=== PATIENT | female | born 1990 | race Two or more races ===

== ENCOUNTER → 2025-08-04 09:01 | Outpatient (REF) | payer OTHER, SELFPAY | LOC: PNTC 09:01 | PROVIDERS: ATTENDING PHYSICIAN Obstetrics & Gynecology | DX: O70.21 Third degree perineal laceration during delivery, IIIa (principal) | CPT/HCPCS: 76816 ==

== ENCOUNTER 2025-08-13 07:53 | Inpatient (IN) | payer OTHER, SELFPAY ==
[2025-08-13 08:08] VITALS: BP 113/82; BMI 28.0
[2025-08-13] MEDS: CYTOTEC 25 MICROGRAM PO ×2 (09:28→13:43)
[2025-08-13 09:52] LABS: Hematocrit 35.2 % (37.0-47.0); Hemoglobin 11.9 g/dL (12.0-16.0); Mean Corp Hgb Conc. 33.8 g/dL (33.0-37.0); Mean Corpuscular Volume 92.1 fL (81.0-99.0); Nucleated Red Blood Cells % 0 %; Platelet Count 291 10^3/uL (130-400); Red Cell Dist. Width 13.2 % (11.5-14.5)
[2025-08-13] MEDS: LR 1000 IV ×2 (18:09→20:40)
[2025-08-13] MEDS: PITOCIN 30 UNITS/NSS 500 ML IV (18:27)
[2025-08-13] MEDS: CYTOTEC PO (18:27)
[2025-08-14] MEDS: FENTANYL/BUPIVACAINE 100 EPIDURAL (02:32)
[2025-08-14] MEDS: SUBLIMAZE 100 MCG EPIDURAL (02:32)
[2025-08-14] MEDS: LR 1000 IV (02:53)
[2025-08-14] MEDS: MOTRIN 600 MG PO (14:07)
[2025-08-14] MEDS: PRENATAL PLUS 1 TABLET PO (14:07)
[2025-08-14] MEDS: COLACE 100 MG PO (20:46)
[2025-08-15] MEDS: MOTRIN 600 MG PO ×2 (01:24→21:08)
[2025-08-15 04:28] LABS: Hematocrit 28.9 % (37.0-47.0); Hemoglobin 10.0 g/dL (12.0-16.0)
[2025-08-15 13:41] LABS: Syphilis/T. pallidum Ab Reflex Negative (Negative)
[2025-08-15] MEDS: COLACE 100 MG PO (20:01)
[2025-08-15] MEDS: PRENATAL PLUS 1 TABLET PO (20:01)
[2025-08-16] MEDS: PRENATAL PLUS 1 TABLET PO (08:14)
[2025-08-16] MEDS: MOTRIN 600 MG PO (08:14)
[2025-08-16] MEDS: COLACE 100 MG PO (08:15)
== END 2025-08-16 09:34 | disposition home or self-care (01) | DRG 807 ==
LOC: LDRP 07:53
PROVIDERS: ADMITTING PHYSICIAN Obstetrics & Gynecology; FAMILY PHYSICIAN Family Medicine; REFERRING PHYSICIAN Obstetrics & Gynecology
PROC: 3E033VJ Introduction of Other Hormone into Peripheral Vein, Percutaneous Approach (ICD-10-PCS; 2025-08-13)
PROC: 10E0XZZ Delivery of Products of Conception, External Approach (ICD-10-PCS; 2025-08-14)
PROC: 10907ZC Drainage of Amniotic Fluid, Therapeutic from Products of Conception, Via Natural or Artificial Opening (ICD-10-PCS; 2025-08-14)
PROC: 0KQM0ZZ Repair Perineum Muscle, Open Approach (ICD-10-PCS; 2025-08-14)
DX: O77.0 Labor and delivery complicated by meconium in amniotic fluid (principal); Z37.0 Single live birth; O70.1 Second degree perineal laceration during delivery; Z3A.39 39 weeks gestation of pregnancy
CPT/HCPCS: 36415; 85014; 85018; 85025; 86780; 86850; 86900; 86901